=== PATIENT | female | born 1995 | race Caucasian/White ===

== ENCOUNTER 2019-11-22 15:07 | Emergency (ER) | payer OTHER, SELFPAY ==
[2019-11-22 15:20] VITALS: BP 105/54; PULSE 59; RESP 16; TEMP 36.9; O2SAT 100
--- NOTE | 2019-11-22 15:32 | ED.GENADULT ---
HPI - General Adult General Chief complaint: Ear Stated complaint: Ear Pain Time Seen by Provider: 11/22/19 15:33 Source: patient and RN notes reviewed Mode of arrival: ambulatory Limitations: no limitations History of Present Illness HPI narrative: This is a 24 years old female presents the office for an evaluation of ears pain for 1-11/2weeks. Pain began with her right ear which her doctor prescribed ear drops. Pain did not resolved; now both of her ears are painful. Pain is worse at night time. She also reports sinus congestion, drainage,Sore throat, feeling achy and decreased appetite. She is also try Flonase for her symptoms with no changes.Denies sick contact at home however she is an high school home economics teacher. Related Data Home Medications Medication Instructions Recorded Confirmed norgestimate-ethinyl estradiol 1 tablet PO DAILY 11/22/19 11/22/19 [Sprintec (28)] Allergies Allergy/AdvReac Type Severity Reaction Status Date / Time No Known Allergies Allergy Verified 11/22/19 15:17 Review of Systems Review of Systems: Narrative: CONSTITUTIONAL: Denies checking for fever ENT: Reports rhinorrhea, congestion, sore throat, otalgia. CARDIOVASCULAR: Denies chest pain RESPIRATORY: Denies cough GASTROINTESTINAL: Denies abdominal pain, nausea, vomiting SKIN: Denies rash MUSCULOSKELETAL: Denies acute back pain NEUROLOGIC: Denies lightheaded PMFSH Social History Social History Smoking status: Never smoker Comments At time of signature, I agree with nursing past medical, surgical, social and family history. There is no relevant family history pertinent to the presenting complaint. Exam Narrative: Exam Narrative: GENERAL: This is a well-nourished, well-developed patient, in no apparent distress. EYES: sclera clear/white. Vision is grossly intact. EARS: External ears normal, auditory canals clear and without drainage, right TM noted fluid leve. left TM appears dull/cloudy,m bulging without perforation. Hearing grossly intact. NOSE: External nose normal with no obvious nasal discharge, nares without redness, no rhinorrhea. THROAT: Mucous membranes moist, posterior pharynx pink with drainage NECK: Neck supple, non-tender without lymphadenopathy, masses or thyromegaly. CARDIOVASCULAR: Regular rate and rhythm without murmurs, gallops, or rubs. RESPIRATORY: Clear to auscultation. Breath sounds equal bilaterally. No wheezes, rales, or rhonchi. GASTROINTESTINAL: Abdomen soft, non-tender, nondistended. Bowel sounds are active. No hepato-splenomegaly, or palpable masses. No guarding. SKIN: warm, intact with no suspicious lesions or rash, good texture and turgor. NEURO: awake, alert, and oriented to person, place and time. There were no obvious focal neurologic abnormalities. Steady gait [place] Coma Scale Eye Opening: Spontaneous 4 [place] Coma Scale Motor: Obeys Commands 6 [place] Coma Scale Verbal: Oriented 5 Course Vital Signs Vital signs: Vital Signs Temperature 98.4 F 11/22/19 15:20 Pulse Rate 59 L 11/22/19 15:20 Respiratory Rate 16 11/22/19 15:20 Blood Pressure 105/54 L 11/22/19 15:20 Pulse Oximetry 100 11/22/19 15:20 Temperature 98.4 F 11/22/19 15:20 Pulse Rate 59 L 11/22/19 15:20 Respiratory Rate 16 11/22/19 15:20 Blood Pressure 105/54 L 11/22/19 15:20 Pulse Oximetry 100 11/22/19 15:20 Medical Decision Making MDM Narrative Medical decision making narrative: Discharge instructions reviewed with patient, as well as provided in writing per nursing staff. The instructions also include specific and strict return/GO TO THE ER as well as f/u information. All questions have been answered, and the patient deny any further questions with discharge and discharge plan. Differential Diagnosis Differential Diagnosis: Allergic Rhinitis, Upper respiratory cough syndrome, Pharyngitis, Sinusitis, Bronchitis, otitis media, viral
== END 2019-11-22 15:42 | disposition home or self-care (01) ==
PROVIDERS: Emergency Provider Nurse Practitioner
DX: J06.9 Acute upper respiratory infection, unspecified (principal); H66.002 Acute suppurative otitis media without spontaneous rupture of ear drum, left ear; R05 Cough
CPT/HCPCS: 99213; G0463

== ENCOUNTER → 2021-12-22 11:18 | Outpatient (CLI) | payer OTHER, SELFPAY ==
--- NOTE | ~2021-12-22 | US_ITS ---
EXAMINATION: US OB transvaginal DATE: 12/22/2021 11:47 INDICATION: . Uncertain dates. TECHNIQUE: Real-time transvaginal pelvic ultrasound was performed. COMPARISON: None. FINDINGS: The uterus measures 8.8 x 5.2 x 5.5 cm. There is an intrauterine gestational sac. A yolk sac is ident ified. The crown rump length measures 6 mm, which correlates with an estimated gestational age of 6 weeks and 3 day(s) (+/-) 4 day(s). heart motion is identified measuring 121 beats per min [place] (bpm) by M-mode Doppler. The ovaries are not visualized. There is no free fluid in the pelvis. IMPRESSION: 1. Single living intrauterine gestation with estimated date of delivery of 08/14/2022. Reviewed, dictated and finalized at location A. [place] OFFICE ASSOCIATE
== END ==
PROVIDERS: Visit Provider Obstetrics & Gynecology Gynecology
DX: Z36.87 Encounter for antenatal screening for uncertain dates (principal); Z3A.00 Weeks of gestation of pregnancy not specified
CPT/HCPCS: 76817

== ENCOUNTER → 2022-03-27 12:54 | Outpatient (CLI) | payer OTHER, SELFPAY ==
--- NOTE | ~2022-03-27 | US_ITS ---
EXAMINATION: US OB /maternal detail DATE: 03/27/2022 13:41 INDICATION: anatomic survey. TECHNIQUE: Real-time ultrasound of the pelvis was performed. COMPARISON: Ultrasound 12/22/2021 FINDINGS: There is a single living fetus in transverse lie. The placenta is anterior, 3.8 cm from the cervix. heart rate is 137 beats per minute (bpm). The amniotic fluid volume is subjectively normal. The following biometric data were obtained: Biparietal diameter (BPD): 5.0 cm; head circumference (HC): 18.7 cm; abdominal circumference (AC): 15 .2 cm; femur length (FL): 3.5 cm. These measurements are concordant. Estimated weight is 377 g +/- 57 g, which correlates with the 86th percentile when 08/14/22 is u sed as estimated date of delivery. As single measurements, these parameters are each equal to the following estimated gestational ages w ith ranges of +/- 2 standard deviations: BPD: 21 weeks 2 days (19 weeks 4 days - 23 weeks 0 days). HC: 21 weeks 0 days (19 weeks 4 days - 22 weeks 3 days). AC: 20 weeks 3 days (18 weeks 2 days - 22 weeks 3 days). FL: 21 weeks 1 days (19 weeks 2 days - 23 weeks 0 days). estimated gestational age based solely on measurements from this exam is 21 weeks 0 days +/- 1 weeks 3 days. The cerebral ventricles, cerebellum, cisterna magna, nuchal fold, lip, and visualized portions of the spine are normal. The heart is normal. The diaphragm, stomach, kidneys, and bladder are normal. Ther e are two umbilical arteries to yield a 3-vessel cord. The cord insertion is normal. IMPRESSION: 1. Single living fetus in transverse lie. 2. Estimated weight is 377 g +/- 57 g, which correlates with the 86th percentile when 08/14/22 is used as estimated date of delivery. This date was set by ultrasound on 12/22/2021. 3. Normal anatomic survey. Reviewed, dictated and finalized at location B. IMPRESSION: 1. Single living fetus in transverse lie. 2. Estimated weight is 377 g +/- 57 g, which correlates with the 86th rcentile when 08/14/22 is used as estimated date of delivery. This date was set by ultrasound on 12/22/2021. 3. Normal anatomic survey.
== END ==
PROVIDERS: PCP Nurse Practitioner; Visit Provider Nurse Practitioner
DX: Z36.9 Encounter for antenatal screening, unspecified (principal); Z3A.21 21 weeks gestation of pregnancy
CPT/HCPCS: 76805

== ENCOUNTER 2022-06-13 17:25 | Outpatient (CLI) | payer OTHER, SELFPAY ==
[2022-06-13] VITALS (7 sets, daily range): BP systolic 92–106; BP diastolic 51–61; PULSE 62–87
--- NOTE | 2022-06-13 18:05 | PC.NURSE ---
1754--Report to Dr. Adair who is compensation administrator , re: pt's reports of RUQ pain, occ. h/a, occ floaters and increased swelling to BLE, v.s. and ctxns. Orders received for PIH workup and PO hydrate.
[2022-06-13 18:23] LABS: Basophils Absolute Auto 0.1 K/mm3 (0.0-0.1); Basophils Percent Auto 0.5 % (0.2-1.2); Eosinophils Absolute Auto 0.2 K/mm3 (0-0.3); Eosinophils Percent Auto 1.1 % (0-4.4); Hematocrit 37.8 % (37.0-47.0); Hemoglobin 12.5 g/dL (12.0-15.0); Immature Granulocyte Percent A 3.8 % (0-0.5); Lymphocytes Absolute Auto 2.98 K/mm3 (0.9-3.2); Mean Corpuscular HGB Conc 33.1 g/dl (32-36); Mean Corpuscular Hemoglobin 28.2 pg (26-34); Mean Corpuscular Volume 85.3 fl (80-100); Mean Platelet Volume 9.5 fl (7.4-10.4); Monocytes Absolute Auto 0.9 K/mm3 (0.1-0.6); Monocytes Percent Auto 5.7 % (2.6-8.5); Neutrophils Absolute Auto 10.9 K/mm3 (1.3-6.7); Neutrophils Percent Auto 69.9 % (45.5-73.1); Platelet Count Result 186 k/mm3 (150-375); Red Blood Count 4.43 M/mm3 (4.2-5.4); Red Cell Distribution Width 13.4 % (11.5-14.5); White Blood Count 15.7 K/mm3 (4.5-10.0)
[2022-06-13 18:32] LABS: Alanine Aminotransferase 19 U/L (6-35); Albumin Level 3.5 g/dL (3.5-5.1); Alkaline Phosphatase 129 U/L (38-126); Anion Gap 10 mmol/L (8-16); Aspartate Amino Transferase 22 U/L (14-36); Bilirubin,Total 0.2 mg/dL (0.2-1.3); Blood Urea Nitrogen 10 mg/dL (7-17); Calcium 8.8 mg/dL (8.4-10.2); Carbon Dioxide 21 mmol/L (22-30); Chloride 104 mmol/L (98-107); Estimated Glomerular Filt Rate > 60; Glucose 75 mg/dL (65-110); Potassium 3.5 mmol/L (3.4-5.0); Sodium 135 mmol/L (137-145); Uric Acid 3.2 mg/dL (2.5-7.5)
[2022-06-13 18:45] LABS: Appearance Urine Clear (Clear); Bilirubin Urine Negative (Negative); Blood Urine Negative (Negative); Color Urine Yellow (Yellow); Glucose Urine UA Negative (Negative); Ketones Urine 2+ mg/dL (Negative); Leukocyte Esterase Ur Negative LEU/UL (NEGATIVE); Nitrate Urine Negative (Negative); Protein Urine Negative (Negative); Specific Grav Ur 1.015 (1.001-1.035); Urobilinogen Urine 0.2 mg/dL (<2.0)
[2022-06-13 18:48] LABS: Amorphous Sediment Urine Few; Bacteria Urine Trace /hpf; Mucus Urine Rare /lpf; RBC Urine 0-2 /hpf (0-2); Squamous Epithelial Cell Urine Rare /hpf (Few); WBC Urine 0-3 /hpf (0-3)
[2022-06-13 18:51] LABS: Creatinine Urine 47.4 mg/dL; Total Protein Urine Random 11 mg/dL; Ur Ttl Prot Creatinine Ratio 0.23 mg/mg (0-0.20)
[2022-06-13 18:52] LABS: Add Urine Microscopic? YES
--- NOTE | 2022-06-13 19:04 | PC.NURSE ---
Dr. Adair in department- labs reviewed. tracing reviewed. pt may d/c home with instructions to po hydrate and when to return to L&D. orders received.
== END 2022-06-13 19:19 | disposition home or self-care (01) ==
LOC: ANHOBOP 17:29 → ANHOBPP 17:29
PROVIDERS: Obstetrics & Gynecology; PCP Nurse Practitioner; Visit Provider Advanced Practice Midwife
DX: R10.11 Right upper quadrant pain (principal); M79.89 Other specified soft tissue disorders
CPT/HCPCS: 36415; 80053; 81001; 82570; 84156; 84550; 85025; 87086; 99199

== ENCOUNTER → 2022-07-13 09:11 | Outpatient (CLI) | payer OTHER, SELFPAY ==
--- NOTE | ~2022-07-13 | US_ITS ---
EXAMINATION: US OB follow up DATE: 07/13/2022 09:39 INDICATION: Evaluate movement. Size greater than dates. TECHNIQUE: Real-time transabdominal obstetric ultrasound. FINDINGS: Comparison to multiple prior studies sequentially, with oldest reviewed study dated 022. There is a single living fetus in vertex presentation. The placenta is anterior without placenta pre via. cardiac activity and movement is noted with a heart rate of 134 beats per minute. T he amniotic fluid volume is normal. DELVIN measures 17.7 cm. The following biometric data were obtained: BPD: 89mm corresponds to gestational age 36 weeks 1 days. Head circumference: 326mm corresponds to gestational age 37 weeks 0 days. Abdominal circumference: 317mm corresponds to gestational age 35 weeks 4 days. Femur length: 69mm corresponds to gestational age 35 weeks 2 days. Estimated weight: 2747grams +/- 412grams, 56.8% by Hadlock method.] IMPRESSION: 1. Single living intrauterine in vertex presentation with an estimated gestational age of 35 weeks 3 days by inititial ultrasound. Appropriate interval growth. 2. Normal placenta. Reviewed, dictated and finalized at location A. IMPRESSION: 1. Single living intrauterine in vertex presentation with an estimat ed gestational age of 35 weeks 3 days by inititial ultrasound. Appropriate int erval growth. 2. Normal placenta.
== END ==
PROVIDERS: PCP Obstetrics & Gynecology Gynecology; Visit Provider Obstetrics & Gynecology Gynecology
DX: O36.63X0 Maternal care for excessive fetal growth, third trimester, not applicable or unspecified (principal); Z3A.35 35 weeks gestation of pregnancy
CPT/HCPCS: 76816

== ENCOUNTER 2022-07-22 15:43 | Outpatient (CLI) | payer OTHER, SELFPAY ==
--- NOTE | 2022-07-22 16:53 | PC.NURSE ---
[address] Wellington, ROM plus negative, irregular contractions with irritability, orders to discharge to home with labor precautions.
== END 2022-07-22 16:55 | disposition home or self-care (01) ==
LOC: ANHOBOP 16:47
PROVIDERS: Visit Provider Obstetrics & Gynecology Gynecology
DX: O42.90 Premature rupture of membranes, unspecified as to length of time between rupture and onset of labor, unspecified weeks of gestation (principal); Z3A.00 Weeks of gestation of pregnancy not specified
CPT/HCPCS: 59025; 84112

== ENCOUNTER 2022-08-03 09:50 | Inpatient (IN) | payer OTHER, SELFPAY ==
[2022-08-03] VITALS (181 sets, daily range): BP systolic 74–131; BP diastolic 45–98; PULSE 63–165; TEMP 36.2–36.6; O2SAT 57–100; BMI 33.5
[2022-08-03 12:03] LABS: Basophils Absolute Auto 0.1 K/mm3 (0.0-0.1); Basophils Percent Auto 0.4 % (0.2-1.2); Eosinophils Absolute Auto 0.2 K/mm3 (0-0.3); Eosinophils Percent Auto 1.6 % (0-4.4); Hematocrit 43.8 % (37.0-47.0); Hemoglobin 14.1 g/dL (12.0-15.0); Immature Granulocyte Absolute 0.22 K/mm3 (0.00-0.031); Immature Granulocyte Percent A 1.7 % (0-0.5); Lymphocytes Absolute Auto 2.87 K/mm3 (0.9-3.2); Lymphocytes Percent Auto 21.6 % (18.3-44.2); Mean Corpuscular HGB Conc 32.2 g/dl (32-36); Mean Corpuscular Hemoglobin 27.9 pg (26-34); Mean Corpuscular Volume 86.6 fl (80-100); Mean Platelet Volume 10.6 fl (7.4-10.4); Monocytes Absolute Auto 0.7 K/mm3 (0.1-0.6); Monocytes Percent Auto 5.5 % (2.6-8.5); Neutrophils Absolute Auto 9.2 K/mm3 (1.3-6.7); Neutrophils Percent Auto 69.2 % (45.5-73.1); Platelet Count Result 188 k/mm3 (150-375); Red Blood Count 5.06 M/mm3 (4.2-5.4); Red Cell Distribution Width 14.2 % (11.5-14.5); White Blood Count 13.3 K/mm3 (4.5-10.0)
[2022-08-03] MEDS: LACTATED RINGERS 1,000 ML 125 ML IV CONT ×3 (12:03→17:33)
[2022-08-03] MEDS: OXYTOCIN 30 UNITS/NS 500 ML 30 UNITS/500 ML BAG IV CONT (12:04)
--- NOTE | 2022-08-03 12:50 | WPDANESEPPF ---
Anes - Initial Pre Proc Eval Procedure: labor epidural Date/Time: 08/03/22 12:50 Surgeon: Quyen Wellington MD Pre Op Diagnosis: labor pain Pre Op Diagnosis: ROM/Labor Patient Data Age: 26 Gender: F Height: 1.63 m Weight: 88.5 kg Last Vital Signs Temp 36.2 C L 08/03/22 10:42 Pulse 70 08/03/22 12:30 BP 118/78 08/03/22 12:30 O2 Del Method Room Air 08/03/22 10:44 Allergies Allergy/AdvReac Type Severity Reaction Status Date / Time No Known Allergies Allergy Verified 11/22/19 15:17 Home Medications Medication Instructions Recorded Confirmed Type aspirin 81 mg tablet 81 mg PO DAILY 07/22/22 07/22/22 History cholecalciferol (vitamin D3) 125 125 mcg PO DAILY 07/22/22 07/22/22 History mcg (5,000 unit) tablet (Vitamin D3) famotidine 20 mg tablet (Pepcid) 20 mg PO DAILY 07/22/22 07/22/22 History prenat.vits,basia,bvw-afgv-vkvcf 1 tablet PO DAILY 07/22/22 07/22/22 History Laboratory Tests 08/03/22 08/03/22 11:52 11:52 WBC 13.3 K/mm3 H K/mm3 (4.5-10.0) RBC 5.06 M/mm3 M/mm3 (4.2-5.4) Hgb 14.1 g/dL g/dL (12.0-15.0) Hct 43.8 % % (37.0-47.0) MCV 86.6 fl fl (80-100) MCH 27.9 pg pg (26-34) MCHC 32.2 g/dl g/dl (32-36) RDW 14.2 % % (11.5-14.5) Plt Count 188 k/mm3 k/mm3 (150-375) MPV 10.6 fl H fl (7.4-10.4) Immature Gran % (Auto) 1.7 % H % (0-0.5) Neut % (Auto) 69.2 % % (45.5-73.1) Lymph % (Auto) 21.6 % % (18.3-44.2) [place] % (Auto) 5.5 % % (2.6-8.5) Eos % (Auto) 1.6 % % (0-4.4) Baso % (Auto) 0.4 % % (0.2-1.2) Lymph # (Auto) 2.87 K/mm3 K/mm3 (0.9-3.2) [place] # (Auto) 0.7 K/mm3 H K/mm3 (0.1-0.6) Eos # (Auto) 0.2 K/mm3 K/mm3 (0-0.3) Baso # (Auto) 0.1 K/mm3 K/mm3 (0.0-0.1) Abs Immat Gran (auto) 0.22 K/mm3 H K/mm3 (0.00-0.031) Absolute Neuts (auto) 9.2 K/mm3 H K/mm3 (1.3-6.7) Absolute Nucleated RBC 0.0 K/mm3 K/mm3 (0.0-0.012) Nucleated RBC % 0.0 % % (0.0-0.2) RPR Pending Patient hx anesthesia problems: none Family hx anesthesia problems: none Results Review: All pre-operative results and documents have been reviewed as part of the pre-operative evaluation. [facility] Family History Family History (Updated 07/22/22 @ 12:54 by Christiana Abel RN) Sibling Schizophrenia Social History Social History Smoking status: Never smoker Second hand tobacco smoke exposure: No Substance use: never Spiritual care concerns: No Anes - Eval Final PreProcedure Day of Procedure 08/03/22 12:50 Patient weight: obese ASA classification: II Anesthetic plan: proceed Anesthesia type and monitoring: regional epidural and standard monitoring Results Review: All pre-operative results and documents have been reviewed as part of the pre-operative evaluation. Informed Consent: The patient's anesthetic plan and its attendant risks and benefits were discussed with the patient/family/POA. Questions were solicited and answers provided to the satisfaction of the patient/family/POA.
--- NOTE | 2022-08-03 14:13 | PM.IMHP ---
H&P: HPI History of Present Illness Date/Time: 08/03/22 14:13 Chief Complaint: Intrauterine at term Narrative: 26 yo at 38w3d who presents after rupture of membranes. Pt reports a large gush of fluid around 0500. She reports some contractions but states they are inconsistent. She reports good movement. She denies any vaginal bleeding. Pt complicated by Rubella non-immune status Review of Systems Cardiovascular: Cardiovascular: Denies chest pain, Denies leg edema, Denies palpitations, Denies dyspnea and Denies dyspnea on exertion Respiratory: Respiratory: Denies cough, Denies dyspnea and Denies dyspnea on exertion Gastrointestinal: Gastrointestinal: Denies abdominal pain, Denies constipation, Denies diarrhea, Denies nausea and Denies vomiting Genitourinary: Genitourinary: Denies hematuria, Denies urinary frequency, Denies dysuria, Denies pelvic pain, Denies urinary incontinence and Denies vaginal discharge Neurologic: Reports system reviewed and no additional complaints, except as documented Psychiatric: Psychiatric: Reports no additional psychiatric complaints Endocrine: Endocrine: Denies palpitations [facility] Family History Family History (Updated 07/22/22 @ 12:54 by Christiana Abel RN) Sibling Schizophrenia Social History Social History Smoking status: Never smoker Second hand tobacco smoke exposure: No Substance use: never Spiritual care concerns: No Meds Home Medications and Allergies Home Medications Medication Instructions Recorded Confirmed Type aspirin 81 mg tablet 81 mg PO DAILY 07/22/22 07/22/22 History cholecalciferol (vitamin D3) 125 125 mcg PO DAILY 07/22/22 07/22/22 History mcg (5,000 unit) tablet (Vitamin D3) famotidine 20 mg tablet (Pepcid) 20 mg PO DAILY 07/22/22 07/22/22 History prenat.vits,basia,man-gkob-qlcsc 1 tablet PO DAILY 07/22/22 07/22/22 History Allergies Allergy/AdvReac Type Severity Reaction Status Date / Time No Known Allergies Allergy Verified 11/22/19 15:17 Vital Signs Vital Signs - 24 hr 08/03/22 10:44 08/03/22 10:42 08/03/22 12:12 Temperature 97.2 F L Pulse Rate 73 Blood Pressure 115/57 L Oxygen Delivery Room Air 08/03/22 12:30 08/03/22 13:00 08/03/22 13:31 Temperature Pulse Rate 70 98 88 Blood Pressure 118/78 131/90 113/63 Oxygen Delivery 08/03/22 12:00 Temperature 97.5 F L Pulse Rate Blood Pressure Oxygen Delivery Exam Const: General: no acute distress Eyes: EOM: EOMs intact bilaterally Neck: Neck: supple Thyroid: thyroid normal Chest: Breast/axilla inspection: normal inspection of the breasts Breast/axilla palpation: normal palpation of the breasts, normal palpation of the axillae and no axillary lymphadenopathy Resp: Effort & Inspection: normal respiratory effort Auscultation: clear to auscultation bilaterally Cardio: Rate: regular rate Rhythm: regular rhythm GI: Inspection: non-distended and other (Gravid) GI Palp: Yes Soft to palpation, No Tenderness to palpation present (GI) and No Guarding due to palpation present (GI) Auscultation: normal bowel sounds : Speculum Exam - Vagina: No vaginal bleeding OB/external & speculum: external exam normal; No vaginal bleeding Skin: General skin exam: normal color and no rashes or lesions noted Neuro: Cognition (Neuro): normal cognition Speech: normal speech Extrem: General: normal to inspection Psych: Mental Status: mental status grossly normal Affect: normal affect H&P: Results Labs Labs: Short CBC 08/03/22 Range/Units 11:52 WBC 13.3 H (4.5-10.0) K/mm3 Hgb 14.1 (12.0-15.0) g/dL Hct 43.8 (37.0-47.0) % Plt Count 188 (150-375) k/mm3 Assessment and Plan Assessment and plan (1) Supervision of high risk , unspecified, third trimester: Code(s): O09.93 - Supervision of high risk , unspecified,
[2022-08-03] MEDS: ACETAMINOPHEN 500 MG TABLET 1000 MG PO (18:34)
[2022-08-03] MEDS: ONDANSETRON INJ 4 MG/2 ML VIAL IV PUSH (18:58)
[2022-08-04] VITALS (112 sets, daily range): BP systolic 52–179; BP diastolic 29–124; PULSE 39–225; RESP 17–99; TEMP 36.7–37; O2SAT 77–100
[2022-08-04] MEDS: LACTATED RINGERS 1,000 ML 125 ML IV CONT ×3 (00:29→04:46)
[2022-08-04] MEDS: ONDANSETRON INJ 4 MG/2 ML VIAL IV PUSH ×2 (00:58→06:29)
[2022-08-04] MEDS: AMPICILLIN 2 GM/NS 100 ML 2 GM/100 ML BAG IVPB (04:00)
--- NOTE | 2022-08-04 06:20 | PM.OBPNLAB ---
Pain Control Date/time seen: 08/04/22 06:20 Comments: Pt had been pushing for almost 3 hours. Pt was exhausted and having difficultly pushing effectively. Pelvic Exam Dilation (cm): 10 Effacement (%): 100 station: +2 Status status: Category l Assessment and Plan Comments: on exam, the bony skull was noted to be +2 station. There was plenty of caput extending to 3+. BSUS was performed and the fetus was noted to be direct OP. Discussed options with patient. Pt offered rest, operative vaginal delivery with forceps or primary . Pt and spend 20 minutes discussing their options. After discussing the risks, benefits, and alternatived, the patient elected for a operative vaginal delivery with forceps. FHT remain cat 1
--- NOTE | 2022-08-04 06:26 | PM.OBPRVD ---
OB - Delivery Note Procedure Delivery date: 09/13/21 Intrapartal Events: Ineffetive Pushing/Maternal Exhaustion Induction method: Per Misoprostol Protocol Delivery augmentation: Rupture of Membranes and Pitocin Delivery monitor: External FHT and Internal Uterine Route of delivery: forceps Indication for instrumentation: maternal exhaustion (prolonged 2nd stage of labor) Episiotomy description: None Laceration Description: Perineal - 4th Degree Delivery repair: vicryl Specimen: No Quantitative Blood Loss (ml): 450 Anesthesia type: Epidural Disposition: Floor Narrative: Patient had been pushing for 3 hours. skull was noted to be +2 station and OP position. She had a moderate amount of caput. FHT had mod variability, acceleration and nol decelerations with pushing. Discussed forceps assisted vaginal delivery vs section. Pt was consented and agreed to FAVD. Patient positioned in stirrups with the bed broken, dorsal lithotomy. Her perineum was prepped and draped in the usual fashion. The perineal body was normal length. Pelvis felt to be adequate. +2 station. Mod caput. Sagittal suture palpated and found to be direct A-P plane with possibly 5 degrees leftward axis. Phantom application of blades performed prior to placing left hand into vaginal sidewall. Left blade gently inserted along my hand to ensure no vaginal lacerations - advanced along the skull with the axillary prominence in a gentle fashion. In a similar fashion, the right blade was gently placed. Blade placement was then double checked to ensure adequate placement. The forceps shank articulated well in the midline. A fingerbreadth below the suture on either side was noted. With the next contraction, gentle downward pressure was applied in sync with the contraction / pushing effort. Adequate descent was noted. There were a total of 2 pulls, and the forceps were disarticulated as the head delivered. A nuchal cord x 1 was noted and reduced on the perineum. The cord did evulse at the time of reduction. The remainder of the infant was delivered atraumatically. A segment of cord taken for gases and sample collected as above. The placenta delivered spontaneously and found to be intact. A partial fourth degree laceration was noted following delivery of the placenta. A rectal exam was performed that revealed the outer 2 cm of rectal mucosa was lacerated through. After a change of gloves, a 4-0 vicryl suture was used to re-approximate the mucosa in a running horizontal mattress suture fashion. The external anal sphincter was then grasped with 2 Allis clamps (1 on either side) for traction. Using of series of 4 horizontal and vertical mattress sutures of 2-0 vicryl, the posterior, inferior, superior, and anterior aspects of the muscle were reapproximated and suture ligated. A deep and long left sulcal tear was identified. The apex was grasped and suture ligated with 3-0 vicryl. This was then closed in a running fashion to the introitus. The remainder of the laceration was closed in a standard fashion. A rectal exam was performed to ensure complete closure and no residual defects.? She was instructed on this type of laceration, the importance of stool softeners and perineal care, and we administer an extra dose of prophylactic antibiotics with Ancef. All sponge, lap, and needle counts correct x 2. Patient taken out of lithotomy position and tolerated procedure very well. NICU present for delivery. [place] Baby Date of : 08/04/22 Time of : 05:15 Weeks of gestation at delivery: 38 Infant gender: Male Weight (pounds): 8 Weight (ounces): 5 presentation: vertex position: Right Occiput Posterior Placenta delivery description: Spontaneous Cord Vessel Description: 3 Vessels and Nuchal Cord score one minute: 7 score five minutes: 8
[2022-08-04] MEDS: ceFAZolin 2 GM/D5W 50 ML 2 GM/50 ML BAG IVPB (06:30)
[2022-08-04] MEDS: BENZOCAINE 20% AER SPR (*SP) 56 GM CAN 1 SPRAY TOPICAL (07:58)
[2022-08-04] MEDS: WITCH HAZEL 40 PADS 1 PAD TOPICAL (07:58)
[2022-08-04] MEDS: ACETAMINOPHEN 325 MG TABLET 650 MG PO (09:26)
[2022-08-04] MEDS: IBUPROFEN 600 MG TABLET PO ×2 (09:26→23:40)
--- NOTE | 2022-08-04 10:20 | PC.NURSE ---
Patient transferred to post room # via ( [id number] ). Support person present. Oriented to unit, room, information board, rooming in, admission packet and security measures. Patient verbalizes understanding.
[2022-08-04] MEDS: MULTIVIT/MIN/PREN/FOL AC/IRON TABLET 1 TAB PO (10:55)
[2022-08-04] MEDS: HYDROcodone/acetaminophen (*CRX) 10-325 MG TABLET 1 TAB PO ×4 (10:55→23:40)
[2022-08-04] MEDS: LANOLIN (LANSINOH) 7.5 GM CREAM 1 APPLIC TOPICAL (17:37)
[2022-08-04] MEDS: SENNA/DOCUSATE SODIUM TABLET 2 TAB PO (20:55)
[2022-08-05] MEDS: HYDROcodone/acetaminophen (*CRX) 10-325 MG TABLET 1 TAB PO ×2 (02:51→07:39)
[2022-08-05 04:15] VITALS: BP 110/63; PULSE 89; RESP 18; TEMP 36.6
[2022-08-05 05:07] LABS: Hematocrit 24.4 % (37.0-47.0)
--- NOTE | 2022-08-05 07:11 | WPDANLDPN2 ---
Anes-Prog Note L&D Date/Time: 08/05/22 07:11 Comfortable throughout: labor and delivery Neuraxial method: epidural Epidural/Spinal procedure site: clean & non-tender Neuro status: Neuro function grossly intact. Cardiovascular status: normal Respiratory status: normal Airway patency: baseline Mental status: baseline Post-Op hydration status: normal Vital Signs: Last Vital Signs Temp 36.6 C 08/05/22 04:15 Pulse 89 08/05/22 04:15 Resp 18 08/05/22 04:15 BP 110/63 08/05/22 04:15 Pulse Ox 97 08/04/22 10:45 O2 Del Method Room Air 08/04/22 20:00 Pain score (VAS): 0/10 I/O: Intake & Output 08/04/22 08/04/22 08/05/22 15:59 23:59 07:59 Intake Total 400 Output Total 450 Balance -450 400 Post-procedural complaints: none Patient feedback: Patient satisfied with anesthetic care.
[2022-08-05 07:29] LABS: Rapid Plasma Reagin Non-Reactive (NonReactive)
[2022-08-05] MEDS: MULTIVIT/MIN/PREN/FOL AC/IRON TABLET 1 TAB PO (07:39)
[2022-08-05] MEDS: POLYSACCHARIDE IRON COMPLEX 150 MG CAPSULE PO (07:48)
[2022-08-05 08:10] VITALS: BP 108/68; PULSE 86; RESP 18; TEMP 36.3; O2SAT 100
--- NOTE | 2022-08-05 08:24 | PM.OBPNVD ---
OB - PN: Subj Subjective Date/time seen: 08/05/22 08:24 Patient comments: no complaints and pain well controlled baby status: doing well OB - PN: Obj Data Labs CBC & Chem 7: 08/05/22 04:12 Labs: Laboratory Results - last 24 hr 08/03/22 08/05/22 11:52 04:12 Hgb 8.0 L D Hct 24.4 L RPR Non-reactive OB - PN A/P Plan day: 1 Plan: routine care, discharge home, follow up 6 weeks and other (Plans condoms for control) Comments: tolerating anemia without symptoms Time Spent With Patient Time: Total time spent is greater than 50% in coordination of care (as documented) at patient's floor/unit and/or counseling patient: Exam : Bimanual exam- vagina & uterus: other (Uterus firm, nt @U)
--- NOTE | 2022-08-05 08:27 | PM.OBDSVD ---
DS: Admitting Diagnosis Discharge Date 08/05/22 Admitting Diagnosis spontaneous rupture of membrane DS: Discharge Diagnosis Discharge Diagnosis (1) Forceps delivery: Code(s): O75.9 - Complication of labor and delivery, unspecified Status: Acute (2) Fourth degree laceration of perineum, delivered, current hospitalization: Code(s): O70.3 - Fourth degree perineal laceration during delivery Status: Acute OB - DS: Summary Hospital Course Hospital Course: delivered by Dr. Brunson OB Procedures : Ultrasound OB Procedures Intrapartum: Forceps OB Procedures: : None Peripartum Data Delivery Method: Assisted Delivery Laceration Description: Vaginal - 4th Degree complications: none Status at Discharge Functional status at discharge: independent ambulation Overall status at discharge: patient is progressing back to baseline Time Spent with Patient Time attestation: Total time spent providing and/or coordinating discharge services: DS: Data Data Completed and Pending Labs on day of discharge: Labs from last 24 hours 08/05/22 08/03/22 04:12 11:52 Hgb 8.0 L D Hct 24.4 L RPR Non-reactive Discharge Plan Discharge Attending physician on discharge: Quyen Wellington Discharging Clinician: Quyen Wellington Anticipated Discharge Date/Time: 08/05/22 08:29 Patient Disposition: Home, Self-Care Activity: pelvic rest Diet: regular Patient Instructions: Antibiotic Form Stand Alone Forms: General Discharge Information Follow-up/Referrals: Quyen Wellington MD [Physician] - 6 Weeks Discharge Medications: New polysaccharide iron complex 150 mg iron Capsule 150 mg PO BIDWM Qty: 60 1RF sennosides-docusate sodium [Senokot-S] 8.6-50 mg Tablet 2 tab PO HS Qty: 60 1RF Continued #2 Tablet 1 tablet PO DAILY cholecalciferol (vitamin D3) [Vitamin D3] 125 mcg (5,000 unit) Tablet 125 mcg PO DAILY Discontinued famotidine [Pepcid] 20 mg Tablet 20 mg PO DAILY Adult Low Dose Aspirin 81 mg Tablet 81 mg PO DAILY Date of admission: 08/03/22 09:50 Primary Care Provider: Maricel Zuniga Admitting Provider: Quyen Wellington Attending physician on admission: Quyen Wellington Condition: Stable
[2022-08-05] MEDS: polyethylene glycoL 3350 17 GM POWD.PACK PO (09:52)
--- NOTE | 2022-08-05 12:30 | PC.NURSE ---
Patient viewed the discharge video Mother & Baby Care, The First Two Weeks . Patient was given the opportunity and encouraged to ask questions. Patient verbalized understanding of information shared and has been given the mother/baby guide for home reference.
[2022-08-05] MEDS: IBUPROFEN 600 MG TABLET PO (13:10)
--- NOTE | 2022-08-05 15:01 | PC.NURSE ---
[id number] Introductions were made, then consulted with patient to assess needs related to . Mother led the conversation with her?plans to feed?her infant and the?experience so far. Resources provided for inpatient and outpatient services using a resource guide and mom/baby guide. Mother voiced understanding of information and requests assistance. Mother works well with her infant with encouragement and education. Encouraged understanding of the benefits of skin to skin (unwrapping and placing vertically on her chest), responsive feeding and how to watch for early feeding signs, frequency of feeding on demand about every 8-12 times in 24 hours (every 2-3 hours), milk production, duration of feeding, signs of adequate intake/output and how to record on the feeding sheet. Reviewed positioning and ear, shoulder, hip alignment, supporting the breast, asymmetrical latch (off-center), and leading with the chin with a big open side gape. Infant attempts to latch with big, wide, open gape, then holds nipple in the mouth. Nipple care reviewed with optimal latch and good positioning. Mother shares that she is attempting to breastfeed, then pumping and supplementing. Discussed risks and benefits to supplementation, reviewed milk production, and taught parents the skill of syringe feeding infant the pumped human milk as a reward for sucking on dads finger. Mother voiced understanding of responsive feedings, stimulating with skin to skin, hand expressed colostrum, massage touch, talking to to encourage every 2 -3 hours, to call if does not wake to latch, or there is discomfort with . Reported to the primary RN.
[2022-08-05] MEDS: MEASLES,MUMPS,RUBELLA VACCINE 0.5 ML VIAL SUB-Q (15:16)
[2022-08-07 09:37] VITALS: BP 108/76; PULSE 86; RESP 16; TEMP 37.3; O2SAT 100
== END 2022-08-05 15:55 | disposition home or self-care (01) | DRG 768 ==
LOC: ANHLDR 10:59 → ANHOB2 08-04 10:31
PROVIDERS: Admitting Provider Student in an Organized Health Care Education/Training Program; PCP Advanced Practice Midwife; Visit Provider Obstetrics & Gynecology Gynecology
DX: O75.81 Maternal exhaustion complicating labor and delivery (principal); Z37.0 Single live birth; Z3A.38 38 weeks gestation of pregnancy; O70.3 Fourth degree perineal laceration during delivery
CPT/HCPCS: 36415; 84112; 85014; 85018; 85025; 86592; 86850; 86900; 86901; 90710; A9270; J0290; J0690; J2405; J2590; J2795; J7120

== ENCOUNTER 2024-06-08 15:18 | Outpatient (CLI) | payer OTHER, SELFPAY ==
--- NOTE | ~2024-06-08 | US_ITS ---
EXAMINATION: US OB <= 14 weeks fetus DATE: 06/08/2024 15:41 INDICATION: Uncertain dates. TECHNIQUE: Real-time transabdominal pelvic ultrasound was performed. COMPARISON: None. FINDINGS: The uterus measures 12.5 x 5.9 x 7.3 cm. There is an intrauterine gestational sac. A yolk sac is iden tified. The crown rump length measures 1.6 cm, which correlates with an estimated gestational age of 8 weeks and 0 day(s) (+/-) 5 day(s). heart motion is identified measuring 162 beats per minute (bpm) by M-mode Doppler. There are 2 small subchorionic hematomas. The right ovary measures 3. 4 x 3.3 x 3.1 cm. The left ovary measures 2.9 x 2.6 x 2.4 cm. There is no free fluid in the pelvis. IMPRESSION: 1. Single living intrauterine gestation with estimated date of delivery of 01/18/2025. 2. Two small subchorionic hematomas. Reviewed, dictated and finalized at location A. IMPRESSION: 1. Single living intrauterine gestation with estimated date of delivery of 01/18. 2. Two small subchorionic hematomas.
== END 2024-06-08 15:19 ==
LOC: MICIMG 15:19
PROVIDERS: PCP Advanced Practice Midwife; Visit Provider Advanced Practice Midwife
DX: Z36.87 Encounter for antenatal screening for uncertain dates (principal); O46.90 Antepartum hemorrhage, unspecified, unspecified trimester; Z3A.00 Weeks of gestation of pregnancy not specified
CPT/HCPCS: 76801

== ENCOUNTER 2024-07-09 01:03 | Day surgery (SDC) | payer OTHER, SELFPAY ==
[2024-07-06 15:31] VITALS: BMI 27.8
--- NOTE | 2024-07-06 15:35 | PC.NURSE ---
Report to the Outpatient Waiting Room, entrance under the green pavilion located off [facility], at time _1000_ on date _[id number]_. Planned Procedure Time: _1200_.? Time changes happen often and if your time is changed the preop area will call you the afternoon before. - You and your visitor will be asked to self-screen and do not enter if you have any COVID symptoms. Please call surgeon if you need to reschedule. - A mask is optional within the hospital at this time. Patients may have clear liquids (water, carbonated beverages, clear teas, apple juice) until 3 hours prior to surgery with a maximum of 20 ounces. - No food from midnight until time of surgery and no smoking Take only the following medications with a SIP of water on the morning of surgery: __None DO NOT STOP ANY OF YOUR OTHER PRESCRIPTION MEDICATIONS PRIOR TO SURGERY EXCEPT THE FOLLOWING Medications to discontinue per physician Vitamins Date to take last dose____Stop today. Please no make-up, nail monegasque, hairspray, perfume, deodorant, or body powder the day of surgery.? No jewelry (including any body piercings) or valuables the day of surgery, leave them at home.? Please take a shower or bath the night before, or the morning of, surgery with an antibacterial soap.? Wear comfortable, loose fitting clothing.? - Jewelry must be removed prior to entering the operating room.? Rings and piercings that are not removed may be cut off. - The hospital will not accept responsibility for valuables.? - Please leave all valuables, including medications, at home the day of surgery. If you are going home after surgery, a licensed inventory associate and driver must drive you home.? - NO public transportation without another adult if you receive anesthesia. - We recommend that an adult stay with you for 24 hours following discharge. - We also recommend that you do not drive, make important decision, drink alcoholic beverages, or take any drugs that were not prescribed by your health care provider for at least 24 hours after your discharge time. Follow any additional instructions given to you from your surgeon. Telephone instructions given to __Holli__and asked if any additional questions and then verbalized understanding. Patient advised to call surgeon office or pre surgery nurse liaison [phone] if any additional questions.
[2024-07-09 11:00] VITALS: BP 107/68; PULSE 87; RESP 14; TEMP 36.8; O2SAT 100
[2024-07-09] MEDS: LACTATED RINGERS 1,000 ML 30 ML IV CONT (11:00)
--- NOTE | 2024-07-09 11:50 | WPDHPUPDATE1 ---
History and Physical Update Update Date/Time: 07/09/24 11:50 History and Physical has been reviewed, including an updated exam of the patient. There are NO changes in the patient's condition. Risks, benefits, and alternatives have been discussed and questions answered. Patient agrees to proceed with procedure.
--- NOTE | 2024-07-09 11:50 | PM.HPGS ---
History of Present Illness History of Present Illness Consent: Risks, benefits, and alternatives have been discussed and questions answered. Patient agrees to proceed with procedure. Chief complaint: Missed Abor Narrative: Holli Chin is a 28 year old female with a missed at 12 weeks measuring 9 weeks by crown-rump length. The patient has had no bleeding. Patient was given options and has chose to proceed with a suction D&C. Risks of infection, bleeding, and perforation are reviewed. Patient voiced understanding and agrees to proceed. Review of Systems Review of Systems: not repeated day of surgery; patient states no changes in status [facility] Past Medical History Medical History (Updated 07/09/24 @ 11:55 by Quyen Wellington MD) Anxiety Forceps delivery Interstitial cystitis Family History Family History (Updated 07/22/22 @ 12:54 by Christiana Abel RN) Sibling Schizophrenia Social History Social History Smoking status: Never smoker Second hand tobacco smoke exposure: No Substance use: never Living arrangements: with family Spiritual care concerns: No Meds Home Medications and Allergies Home Medications Medication Instructions Recorded Confirmed Type cholecalciferol (vitamin D3) 125 125 mcg PO DAILY 07/22/22 07/06/24 History mcg (5,000 unit) tablet (Vitamin D3) prenat.vits,basia,[id number] 1 tablet PO DAILY 07/22/22 07/06/24 History Allergies Allergy/AdvReac Type Severity Reaction Status Date / Time No Known Allergies Allergy Verified 07/06/24 15:30 Vital Signs Vital Signs - 24 hr 07/09/24 11:00 Temperature 98.2 F Pulse Rate 87 Respiratory Rate 14 Blood Pressure 107/68 Pulse Oximetry 100 Oxygen Delivery Room Air Exam Const: General: healthy appearing and alert Orientation/consciousness: patient oriented x3 Resp: Effort & Inspection: normal respiratory effort GI: GI Palp: Yes Soft to palpation, No Tenderness to palpation present (GI) and No Palpable mass present : External Female Exam: normal external appearance Speculum Exam - Vagina: normal appearance of the vagina and normal vaginal discharge Speculum Exam - Cervix: normal appearance of the cervix Bimanual exam- vagina & uterus: uterine size normal and consistency normal Bimanual Exam- Adnexa, other: normal adnexae and No adnexal tenderness Neuro: General: patient oriented x3 Assessment and Plan Assessment and plan (1) Missed : Code(s): O02.1 - Missed Status: Acute Assessment and Plan: plan to proceed with suction D&C
--- NOTE | 2024-07-09 11:57 | P.PNAN_ITS ---
Anes - Initial Pre Proc Eval Procedure: Operation Date: 07/09/24 12:00 Proposed Procedures p Suction Dilation and Curettage - Quyen Wellington MD Date/Time: 07/09/24 11:57 Surgeon: Quyen Wellington MD Pre Op Diagnosis: Missed Abor Patient Data Age: 28 Gender: F Height: 1.63 m Weight: 74.7 kg Last Vital Signs Temp 98.2 F 07/09/24 11:00 Pulse 87 07/09/24 11:00 Resp 14 07/09/24 11:00 BP 107/68 07/09/24 11:00 Pulse Ox 100 07/09/24 11:00 O2 Del Method Room Air 07/09/24 11:00 Allergies Allergy/AdvReac Type Severity Reaction Status Date / Time No Known Allergies Allergy Verified 07/06/24 15:30 Home Medications Medication Instructions Recorded Confirmed Type cholecalciferol (vitamin D3) 125 125 mcg PO DAILY 07/22/22 07/06/24 History mcg (5,000 unit) tablet (Vitamin D3) prenat.vits,basia,[id number] 1 tablet PO DAILY 07/22/22 07/06/24 History Laboratory Tests 07/09/24 10:49 Blood Type A Positive Antibody Screen Negative Screen Not Reportable Baby's Blood Type Not Reportable Baby's ADAN Not Reportable Doses of RhIg Required 0 Patient hx anesthesia problems: none Family hx anesthesia problems: none Results Review: All pre-operative results and documents have been reviewed as part of the pre- operative evaluation. [facility] Past Medical History Medical History (Updated 07/09/24 @ 11:55 by Quyen Wellington MD) Anxiety Forceps delivery Interstitial cystitis Family History Family History (Updated 07/22/22 @ 12:54 by Christiana Abel RN) Sibling Schizophrenia Social History Social History Smoking status: Never smoker Second hand tobacco smoke exposure: No Substance use: never Living arrangements: with family Spiritual care concerns: No Anes - Eval Final PreProcedure Day of Procedure 07/09/24 11:57 Patient weight: normal Heart: regular rate and rhythm Lungs: clear to auscultation Airway: Mallampati scale class II Neurological: alert and oriented Last oral intake: >/= 8 hours ASA classification: II Emergent: no Anesthetic plan: proceed Anesthesia type and monitoring: general GIVS and standard monitoring Results Review: All pre-operative results and documents have been reviewed as part of the pre- operative evaluation. Informed Consent: The patient's anesthetic plan and its attendant risks and benefits were discussed with the patient/family/POA. Questions were solicited and answers provided to the satisfaction of the patient/family/POA.
[2024-07-09] MEDS: LIDOCAINE HCL 1% LOCAL INJ 20 ML VIAL 10 ML INFILTRATE (12:25)
--- NOTE | 2024-07-09 12:47 | W.PM.PROC2 ---
Procedure Note - Detailed Date of Procedure 07/09/24 Pre-op Diagnosis Missed Post-op Diagnosis Same Procedure Performed Suction D&C Surgeon Quyen Wellington MD Anesthesia MAC and Local Findings uterus sounds to 8cm Description of Procedure The patient is taken to the operating room and placed under anesthesia in the dorsal lithotomy position. She was prepped and draped in the usual sterile fashion. [place] speculum was placed in the vagina and the cervix grasped on the anterior lip with a tenaculum. The cervix was injected in each quadrant with 1% lidocaine. The uterus is sounded to 8cm. The cervix is serially dilated with Hegar to an 8. The 8mm curved suction curette was placed and would not pass the internal os. The cervix was then dilated to a Hegar 9 and the curette passes easily. The uterus is then evacuated with the suction until no further products of conception are noted within the tubing. The sharp curette was then used to sharply curette the wall until a good uterine cry was noted in all areas. No additional tissue was obtained. One additional pass with the suction curette was taken and no additional products of conception are noted in the tubing. Instruments are removed. Patient was awakened from anesthesia and taken to recovery in stable condition. Sponge, needle, and instrument counts are correct per the OR staff. Estimated Blood Loss 5 Drains No Packing No Pathology Yes ( Products of conception) Complications No immediate complications Condition Stable Disposition PACU
[2024-07-09 12:53] VITALS: BP 105/57; PULSE 63; RESP 16; O2SAT 100
[2024-07-09 13:19] VITALS: BP 118/73; PULSE 84; RESP 16
[2024-07-09 13:43] VITALS: BP 104/57; PULSE 63; RESP 16
== END 2024-07-09 14:10 | disposition home or self-care (01) ==
PROVIDERS: PCP Advanced Practice Midwife; Visit Provider Obstetrics & Gynecology Gynecology
PROC: (CPT 59820; principal; 2024-07-09 12:00)
DX: O02.1 Missed abortion (principal); F41.9 Anxiety disorder, unspecified
CPT/HCPCS: 59820; 36415; 85461; 86850; 86900; 86901; 88305; J2405; J2704; J7120

== ENCOUNTER 2024-07-29 12:21 | Emergency (ER) | payer OTHER, SELFPAY ==
--- NOTE | ~2024-07-29 | US_ITS ---
EXAMINATION: US pelvic complete DATE: 07/29/2024 15:48 INDICATION: Cramping and vaginal bleeding. TECHNIQUE: Multiple transabdominal sonographic images of the pelvis were obtained. COMPARISON: Ultrasound 06/08/2024 FINDINGS: The uterus measures 10.1 x 8.1 x 6.4 cm. There is physiologic free fluid in the pelvis. There is a 4. 3 x 5.3 x 4.5 cm hyperechoic mass that either abuts the endometrial complex or involves the endometri al complex without internal vascular flow. The right ovary measures 1.3 x 3.0 x 3.0 cm. The left ovar y measures 2.7 x 1.8 x 2.7 cm. There is normal vascular flow in the ovaries. IMPRESSION: 1. Endometrial versus submucosal mass in the uterus suspicious for hematoma or retained products of c onception. Reviewed, dictated and finalized at location A. IMPRESSION: 1. Endometrial versus submucosal mass in the uterus suspicious for hematoma or retained products of conception.
[2024-07-29 12:32] VITALS: BP 120/82; PULSE 101; RESP 20; TEMP 36.6; O2SAT 100
[2024-07-29 12:34] VITALS: BP 120/82; PULSE 105; RESP 24; O2SAT 100
--- NOTE | 2024-07-29 12:51 | ED.FEMALEGU ---
HPI - Female Genitourinary General Chief complaint: Vaginal Bleeding Stated complaint: miscarriage, bleeding Time Seen by Provider: 07/29/24 12:28 Source: patient and family (initially mother, later patient's ) Mode of arrival: ambulatory Limitations: no limitations History of Present Illness HPI Narrative: 28 female presents with concern for vaginal bleeding and abdominal/pelvic pain/cramping. Patient's LMP was 04/01/2024. She had been at 10 weeks gestational age but at 12 week appointment, fetus was found to have no cardiac activity. Patient underwent D&C for missed 2 weeks ago and did not have significant bleeding or pain before or after the procedure. However, she started bleeding on Friday, initially with heavy dark brown clots and then progressing to red. Continues to pass clots and the cramping started today, becoming more severe throughout the day. ObGyn is Dr Wellington. No fevers. Has been trying Tylenol at home. Had been getting serial bHCG, last one the value corresponded to approximately a 7 week fetus so was downtrending by report. Post operatively, she did develop an infection for which she completed a course of antibiotics. Related Data Home Medications Medication Instructions Recorded Confirmed cholecalciferol (vitamin D3) 125 125 mcg PO DAILY 07/22/22 07/06/24 mcg (5,000 unit) tablet (Vitamin D3) prenat.vits,basia,[id number] 1 tablet PO DAILY 07/22/22 07/06/24 Allergies Allergy/AdvReac Type Severity Reaction Status Date / Time No Known Allergies Allergy Verified 07/06/24 15:30 [facility] Past Medical History Medical History Anxiety Forceps delivery Interstitial cystitis Missed with demise before 20 completed weeks of gestation June 2024 Surgical History Surgical History Hx of dilation and curettage 07/09/24 Family History Family History (Updated 07/22/22 @ 12:54 by Christiana Abel RN) Sibling Schizophrenia Social History Social History (Updated 07/30/24 @ 05:45 by Nancy Graham MD) Smoking status: Never smoker Second hand tobacco smoke exposure: No Substance use: never Living arrangements: with family Additional living arrangements comments: , 1 living child Spiritual care concerns: No Exam Narrative: GENERAL: Well-appearing, well-nourished, and in no acute distress. HEAD: Normocephalic, atraumatic. EYES: Non injected, non icteric ENT: Nares clear, no rhinorrhea or epistaxis. NECK: Supple. CHEST: Speaking in full sentences. No respiratory distress. HEART: Regular rate and rhythm. . ABDOMEN: Soft, nondistended. No rigidity or guarding. EXTREMITIES: Normal range of motion. No lower extremity edema. : NOrmal external genitalia. Blood including clots outside and in vaginal vault. Speculum exam performed with roll mill operator and present. Multiple smal clots removed. There is material at the cervix though difficult to fully visualize the os relative to other structures. Ring forceps used to remove clots and other material. Patient tolerated well. Bimanual exam performed with removal of scant additional clots at posterior fornix. SKIN: Warm, dry, no rash. NEURO: No focal deficits. Alert and oriented x3. PSYCH: Normal mood and affect. Course Vital Signs Vital signs: Vital Signs Temperature 97.9 F 07/29/24 12:32 Pulse Rate 101 H 07/29/24 12:32 Respiratory Rate 20 07/29/24 12:32 Blood Pressure 120/82 07/29/24 12:32 Pulse Oximetry 100 07/29/24 12:32 Temperature 97.9 F 07/29/24 12:32 Pulse Rate 92 07/29/24 18:44 Respiratory Rate 20 07/29/24 18:44 Blood Pressure 106/58 L 07/29/24 18:44 Pulse Oximetry 100 07/29/24 18:44 MDM - Female Genitourinary MDM Narrative Medical decision making narrative: 28 female presents with concern fo
[2024-07-29 13:48] LABS: Basophils Percent Auto 0.3 % (0.2-1.2); Eosinophils Absolute Auto 0.2 K/mm3 (0-0.3); Eosinophils Percent Auto 1.2 % (0-4.4); Hematocrit 41.1 % (37.0-47.0); Hemoglobin 13.6 g/dL (12.0-15.0); Immature Granulocyte Absolute 0.06 K/mm3 (0.00-0.031); Immature Granulocyte Percent A 0.4 % (0-0.5); Lymphocytes Absolute Auto 2.18 K/mm3 (0.9-3.2); Lymphocytes Percent Auto 14.5 % (18.3-44.2); Mean Corpuscular HGB Conc 33.1 g/dl (32-36); Mean Corpuscular Hemoglobin 27.5 pg (26-34); Mean Platelet Volume 9.5 fl (7.4-10.4); Monocytes Absolute Auto 0.5 K/mm3 (0.1-0.6); Monocytes Percent Auto 3.5 % (2.6-8.5); Neutrophils Absolute Auto 12.1 K/mm3 (1.3-6.7); Neutrophils Percent Auto 80.1 % (45.5-73.1); Platelet Count Result 241 k/mm3 (150-375); Red Blood Count 4.95 M/mm3 (4.2-5.4); Red Cell Distribution Width 12.9 % (11.5-14.5); White Blood Count 15.1 K/mm3 (4.5-10.0)
[2024-07-29 13:59] LABS: Prothrombin Time 13.5 Seconds (11.1-14.7)
[2024-07-29 14:09] VITALS: BP 96/59; O2SAT 100
[2024-07-29 14:11] LABS: Alanine Aminotransferase 17 U/L (6-35); Albumin Level 4.2 g/dL (3.5-5.1); Alkaline Phosphatase 58 U/L (38-126); Anion Gap 8 mmol/L (4-12); Aspartate Amino Transferase 28 U/L (14-36); Bilirubin,Total 0.3 mg/dL (0.2-1.3); Blood Urea Nitrogen 9 mg/dL (7-17); Calcium 9.3 mg/dL (8.4-10.2); Carbon Dioxide 26 mmol/L (22-30); Chloride 103 mmol/L (98-107); Estimated CRCL calculation 138 ml/min; Estimated Glomerular Filt Rate > 60; Glucose 95 mg/dL (65-110); Potassium 3.7 mmol/L (3.4-5.0); Sodium 137 mmol/L (137-145)
[2024-07-29] MEDS: MORPHINE SULFATE (*CRX) 4 MG/ML INJ IV PUSH (14:11)
[2024-07-29 14:26] LABS: Bacteria Urine Rare /hpf; Need Manual Microscopic Reviewed; Non Pathogenic Casts 0-2; Squamous Epithelial Cell Urine Occasional /hpf (Few); WBC Urine 21-50 /hpf (0-3)
[2024-07-29 14:27] LABS: Add Urine Microscopic? YES; Appearance Urine Turbid (Clear); Color Urine Red (Yellow); RBC Urine >100 /hpf (0-2)
[2024-07-29 14:42] LABS: Thyroid Stimulating Hormone 0.659 uIU/mL (0.465-4.680)
[2024-07-29 15:23] LABS: Trichomonas Vag PCR NOT DETECTED (NOT DETECTE)
[2024-07-29] MEDS: HYDROmorphone HCL INJ (*CRX) 1 MG/ML SYR 0.5 MG IV PUSH ×2 (15:48→17:41)
[2024-07-29] MEDS: miSOPROStol 200 MCG TABLET 800 MCG RECTAL (18:22)
[2024-07-29 18:44] VITALS: BP 106/58; PULSE 92; RESP 20; O2SAT 100
[2024-07-29] MEDS: KETOROLAC 30 MG/ML VIAL (*BKC) 15 MG IM (19:03)
== END 2024-07-29 19:15 | disposition home or self-care (01) ==
PROVIDERS: Emergency Provider Student in an Organized Health Care Education/Training Program; PCP Advanced Practice Midwife
DX: O02.1 Missed abortion (principal); O08.1 Delayed or excessive hemorrhage following ectopic and molar pregnancy; D72.829 Elevated white blood cell count, unspecified; R10.2 Pelvic and perineal pain
CPT/HCPCS: 36415; 76856; 80053; 81001; 84443; 84702; 85025; 85610; 85730; 87086; 87661; 96372; 96374; 96375; 96376; 99284; A9270; J1171; J1885; J2270